=== PATIENT | female | born 1985 | race American Indian/Alaskan Native ===

== ENCOUNTER 2023-01-14 09:48 | Emergency (ER) | payer MEDICAID | END 2023-01-14 10:28 | disposition home or self-care (01) | LOC: MW.ED 09:48 | DX: Z76.0 Encounter for issue of repeat prescription (principal); F17.210 Nicotine dependence, cigarettes, uncomplicated; Z79.899 Other long term (current) drug therapy | CPT/HCPCS: 99281 ==

== ENCOUNTER 2023-01-15 11:39 | Emergency (ER) | payer MEDICAID | END 2023-01-15 13:09 | LOC: MW.ED 11:39 | DX: R56.9 Unspecified convulsions (principal) | CPT/HCPCS: 70450; 70450-26; 82947; 99285 ==

== ENCOUNTER 2023-05-20 10:40 | Emergency (ER) | payer MEDICAID ==
[2023-05-20 11:17] LABS: APPEARANCE,URINE SLT CLOUDY; GLUCOSE,URINE NEGATIVE (NEGATIVE); KETONES,URINE TRACE mg/dL (NEGATIVE); LEUKOCYTE ESTERASE,URINE MODERATE (NEGATIVE); NITRITE,URINE POSITIVE (NEGATIVE); OCCULT BLOOD,URINE TRACE-INTACT (NEGATIVE); PH,URINE 6.5 (5.0-8.0); PROTEIN,URINE 30 mg/dL (NEGATIVE)
[2023-05-20 11:19] LABS: BILIRUBIN,URINE LARGE (NEGATIVE)
[2023-05-20 11:20] LABS: COLOR,URINE ORANGE
[2023-05-20 11:29] LABS: BACTERIA,URINE 2+ (NEGATIVE); EPITHELIAL CELLS,URINE FEW (NONE-FEW); MUCUS,URINE MODERATE (NONE-MOD); RBC,URINE 0-2 (0-2/HPF); WBC,URINE 20-30 (0-5/HPF)
== END 2023-05-20 12:05 | disposition home or self-care (01) ==
LOC: MW.ED 10:40
DX: N30.00 Acute cystitis without hematuria (principal); Z75.8 Other problems related to medical facilities and other health care; Z79.899 Other long term (current) drug therapy
CPT/HCPCS: 81001; 81025; 87086; 99283

== ENCOUNTER 2023-09-20 21:18 | Emergency (ER) | payer MEDICAID, OTHER ==
[2023-09-20] MEDS: Gabapentin 800 MG Tab ONE (21:58)
[2023-09-20] MEDS: Buprenorphine/Naloxone 8-2 MG Tab.SL SL ONE (22:00)
[2023-09-20] MEDS: Gabapentin 800 MG Tab PO ONE (22:00)
[2023-09-21] MEDS ORDERED: Gabapentin 800 MG Tab PO ONE (21:31)
== END 2023-09-20 22:08 ==
LOC: MW.ED 21:18
DX: F11.20 Opioid dependence, uncomplicated (principal)
CPT/HCPCS: 99283; A9270; J0574

== ENCOUNTER 2023-11-15 19:38 | Emergency (ER) | payer SELFPAY | END 2023-11-15 20:40 | disposition home or self-care (01) | LOC: MW.ED 19:38 | DX: Z76.0 Encounter for issue of repeat prescription (principal); Z79.899 Other long term (current) drug therapy; Z75.8 Other problems related to medical facilities and other health care | CPT/HCPCS: 99281 ==

== ENCOUNTER 2024-03-31 20:25 | Emergency (ER) | payer MEDICAID ==
[2024-03-31 21:24] LABS: APPEARANCE,URINE CLEAR; BILIRUBIN,URINE NEGATIVE (NEGATIVE); COLOR,URINE YELLOW; GLUCOSE,URINE NEGATIVE (NEGATIVE); KETONES,URINE NEGATIVE (NEGATIVE); LEUKOCYTE ESTERASE,URINE NEGATIVE (NEGATIVE); NITRITE,URINE NEGATIVE (NEGATIVE); OCCULT BLOOD,URINE NEGATIVE (NEGATIVE); PROTEIN,URINE NEGATIVE (NEGATIVE); UROBILINOGEN,URINE <2.0 EU/dL (<2.0)
== END 2024-03-31 21:39 ==
LOC: MW.ED 20:25
DX: Z02.89 Encounter for other administrative examinations (principal); Z76.0 Encounter for issue of repeat prescription; Z79.899 Other long term (current) drug therapy
CPT/HCPCS: 81003; 99282; 99283